=== PATIENT | female | born 2000 | race Asian ===

== ENCOUNTER 2023-03-02 10:35 | Emergency (ER) | payer BC, SELFPAY ==
[2023-03-02 10:40] VITALS: BP 148/80; PULSE 82; RESP 16; TEMP 36.8; O2SAT 98; BMI 21.3
--- NOTE | 2023-03-02 10:43 | ED_ITS ---
HPI - General Adult General Chief complaint: Upper Respiratory Symptoms Stated complaint: sob sore throat pain in wrist and heart Time Seen by Provider: 03/02/23 13:29 Source: patient Mode of arrival: ambulatory Limitations: no limitations History of Present Illness HPI narrative: 22-year-old female with history of pleurisy presents to the ER for evaluation sore throat and lung pain when she woke up today. She states she has pain in her upper middle back that started today. She was around her friend recently who was sick, they both tested negative for COVID yesterday. She denies any productive cough. She states she feels short of breath and it hurts to take a deep breath. She denies any fever or chills. She is worried she may have COVID. She states she is also worried she may have an underlying autoimmune disease and is seeing someone tomorrow to get tested for lupus. MD complaint: Lung pain and sore throat Onset (ago): hour(s) Location: mouth and back Radiation: non-radiation Severity: moderate Quality: stabbing Pain Consistency: intermittent Relieving factors: none Exacerbating factors: other (deep breaths) Associated symptoms: shortness of breath Treatments prior to arrival: none Related Data Allergies Allergy/AdvReac Type Severity Reaction Status Date / Time cashew nut Allergy Severe Anaphylaxis Verified 03/02/23 10:48 Review of Systems Review of Systems: Yes all other systems are reviewed and are negative [facility] Social History Social History Advance Directives: No Physical Exam ED Vital Signs: Vital Signs - 24 hr 03/02/23 10:40 Temperature 98.3 F Pulse Rate 82 Respiratory Rate 16 Blood Pressure 148/80 H Pulse Oximetry 98 Oxygen Delivery Method Room Air BMI result Body Mass Index 21.3 Appearance: Alert. Oriented X3. No acute distress. Head: normocephalic, atraumatic. Eyes: Pupils equal, round and reactive to light. ENT: Pharynx normal. No tonsillar swelling or exudate. Neck: Normal inspection. Neck supple. CVS: Normal heart rate and rhythm. Pulses normal. Respiratory: No respiratory distress. Breath sounds normal. Skin: Skin warm and dry. Normal skin color. Normal skin turgor. No rashes. Extremities: No lower extremity edema. No joint swelling. No calf swelling or tenderness Neuro/psych: Oriented X 3. grossly normal, nonfocal Course Course Course Narrative: This is a rapid medical exam: Additional HPI, ROS, PE not included below will be deferred to primary provider. Patient is a 22-year-old female presenting from [facility] to the emergency department with complaint of shortness of breath and lung pain which she describes as feeling similar to a prior episode of pleurisy. Denies fevers, reports occasional cough. Specifically requesting testing for Lupus, stating that she has another autoimmune disease. Also complains of mild sore throat. Plan: Swab for Covid, flu, strep Medical Decision Making Medical Decision Making [facility] Narrative: 30 year female with history of pleurisy presents to the ER for evaluation of cough, shortness of breath, lung pain and sore throat that started today. Positive sick contacts at school. Vital signs stable on arrival, not tachycardic or hypoxic. Perc negative. Lungs are clear on examination. She tested negative for COVID, flu, strep throat. Most likely other viral etiology. Doubt pulmonary embolism. She is following with a doctor tomorrow for further autoimmune testing. At this time she is stable for discharge home with supportive care. Return precautions were discussed. Differential Diagnosis Differential Diagnoses: The differential diagnosis associated with the presentation includes strep, covid, flu, rsv, other viral syndrome, bronchitis, pneumonia, no evidence of peritonsillar abcsess or retropharyngeal abscess, doubt PE Lab Data [facility] Lab Attestation statement: I reviewed the patient's lab results. Labs: Lab Results 03/02/23 03/02/23 Range/Units 10:52 11:24 COVID-19 (JAZMÍN) Negative (Negative) COVID-19 Clin Com See Note Influenza Type A (OMAR) Negative (Negative) Influenza Type B (OMAR) Negative (Negative) Influenza A & B Note See Note S. pyogenes GrpA OMAR Negative (Negative) Tests considered The following testing was considered but not selected: Consider chest x-ray however lungs are clear and saturating well, low suspicion for pneumonia Prescription Management I considered prescription management with: Pain Medication Critical Care Time Critical Care Time Critical Care Time: No Discharge Plan Discharge Clinical Impression: Viral infection Patient Disposition: Home, Self-Care Instructions: Viral Syndrome (ED) Additional Instructions: You tested negative for COVID-19, influenza a and B as well as strep throat. Your symptoms most likely due to another viral illness. Treatment is rest and supportive care. Take [id number] cold and flu medications as needed for your symptoms. Make sure drinking plenty of water and staying hydrated. Follow-up with your doctor. If you develop new or worsening symptoms call 911 or come back to the ER for further evaluation. Stand Alone Forms: Work/School Release
[2023-03-02 11:24] LABS: IDNOW Serial# BCCEAD1C
[2023-03-02 11:25] LABS: COVID-19 Test Negative (Negative); IDNOW Serial# 9DB6401D; Influenza A Negative (Negative); Influenza B2 Negative (Negative)
[2023-03-02 11:54] LABS: IDNOW Serial# 08D9AD1C; Strep A Nucleic Acid Negative (Negative)
== END 2023-03-02 14:32 | disposition home or self-care (01) ==
PROVIDERS: Registered Nurse Emergency; Emergency Provider Emergency Medicine
DX: B34.9 Viral infection, unspecified (principal); J02.9 Acute pharyngitis, unspecified; Z20.822 Contact with and (suspected) exposure to COVID-19
CPT/HCPCS: 87502; 87635; 87651; 99282; 99283